=== PATIENT | male | born 1960 | race Caucasian/White ===

== ENCOUNTER 2016-10-20 11:03 | Day surgery (SDC) | payer OTHER ==
[2016-10-20] MEDS ORDERED: LACTATED RINGERS 1,000 ML ONE (11:21)
[2016-10-20] MEDS ORDERED: IV START KIT ONE (11:21)
[2016-10-20] MEDS ORDERED: MIDAZOLAM HCL 5 MG/5 ML VIAL IV PRN (12:22)
[2016-10-20] MEDS ORDERED: FENTANYL 250 MCG/5 ML AMP IV PRN (12:22)
[2016-10-20] MEDS ORDERED: PROPOFOL 40 ML IV ONE (12:24)
[2016-10-20] MEDS ORDERED: KETAMINE HCL UD SYRINGE 100 MG/2 ML IV ONE (12:25)
[2016-10-20] MEDS ORDERED: LACTATED RINGERS 1,000 ML IV SCH (12:30)
== END 2016-10-20 14:26 | disposition home or self-care (01) ==
LOC: SDC 11:03
PROVIDERS: ATTEND Family Medicine
PROC: 0DJD8ZZ Inspection of Lower Intestinal Tract, Via Natural or Artificial Opening Endoscopic (ICD-10-PCS; principal; 2016-10-20)
DX: Z12.11 Encounter for screening for malignant neoplasm of colon (principal); C91.10 Chronic lymphocytic leukemia of B-cell type not having achieved remission